=== PATIENT | male | born 1960 | race American Indian/Alaskan Native ===

== ENCOUNTER 2017-08-07 00:26 | Emergency (ER) | payer MEDICAID ==
[2017-08-07 00:45] VITALS: RESP 18; O2SAT 97
--- NOTE | 2017-08-07 02:28 | C.PDOC ---
History Of Present Illness The patient presents to the ED for evaluation of abdominal pain and one episode of vomiting which began today. Patient admits to heroin use earlier today. He denies fever, chills, diarrhea, and suicidal/homicidal ideation at this time. Time Seen by Provider: 08/07/17 02:28 Chief Complaint (Nursing): Medical Clearance History Per: Patient History/Exam Limitations: no limitations Onset/Duration Of Symptoms: Hrs Current Symptoms Are (Timing): Still Present Severity: Mild Pain Scale Rating Of: 2 Recent travel outside of the [place]: No Additional History Per: Patient Past Medical History Reviewed: Historical Data, Nursing Documentation, Vital Signs Vital Signs: Last Vital Signs Temp 98.7 F 08/07/17 00:38 Pulse 99 H 08/07/17 00:38 Resp 18 08/07/17 00:38 BP 123/83 08/07/17 00:38 Pulse Ox 97 08/07/17 02:38 - Medical History PMH: Hepatitis, Seizures (last use of dilantin 2 weeks ago) Denies: Diabetes, HIV, HTN, Sexually Transmitted Disease Surgical History: No Surg Hx - [facility]OX[facility] FOR SUBSTANCE ABUSE TREATMENT (07/17/15) Family History: States: Unknown Family Hx - Social History Hx Alcohol Use: Yes Hx Substance Use: Yes - Immunization History Hx Tetanus Toxoid Vaccination: Yes Hx Influenza Vaccination: Yes Hx Pneumococcal Vaccination: No Review Of Systems Constitutional: Negative for: Fever, Chills Cardiovascular: Negative for: Chest Pain, Palpitations Respiratory: Negative for: Cough, Shortness of Breath Gastrointestinal: Positive for: Nausea, Vomiting, Abdominal Pain. Negative for : Diarrhea Skin: Negative for: Rash, Lesions, Jaundice, Bruising Psych: Positive for: Other (heroin use ). Negative for: Suicidal ideation Physical Exam - Physical Exam Appears: Non-toxic, No Acute Distress Skin: Warm, Dry Head: Normacephalic Eye(s): bilateral: Normal Inspection Oral Mucosa: Moist Neck: Supple Chest: Symmetrical, No Deformity, No Tenderness Cardiovascular: Rhythm Regular, No Murmur Respiratory: No Rales, No Rhonchi, No Wheezing Gastrointestinal/Abdominal: Soft, No Tenderness, No Guarding, No Rebound Extremity: Normal ROM, Capillary Refill (less than 2 seconds ) Neurological/Psych: Oriented x3 Gait: Steady ED Course And Treatment O2 Sat by Pulse Oximetry: 97 (on RA ) Pulse Ox Interpretation: Normal Progress Note: Bloodwork ordered and reviewed. Disposition Counseled Patient/Family Regarding: Studies Performed, Diagnosis, Need For Followup - Disposition Referrals: [facility] [Outside] Disposition: HOME/ ROUTINE Disposition Time: 02:28 Condition: FAIR Instructions: Polysubstance Abuse (ED) Forms: [facility] (Maldivian), General Discharge Instructions - Clinical Impression Clinical Impression: Substance abuse - Scribe Statement The provider has reviewed the documentation as recorded by the Scribe (Shilpa Manriquez) Provider Attestation: All medical record entries made by the Scribe were at my direction and personally dictated by me. I have reviewed the chart and agree that the record accurately reflects my personal performance of the history, physical exam, medical decision making, and the department course for this patient. I have also personally directed, reviewed, and agree with the discharge instructions and disposition.
[2017-08-07 03:12] LABS: BARBITURATES, UR NEGATIVE (NEGATIVE); BENZODIAZEPINES, UR NEGATIVE (NEGATIVE); PHENCYCLIDINE, UR NEGATIVE (NEGATIVE)
[2017-08-07 03:17] LABS: OPIATES, UR POSITIVE (NEGATIVE)
[2017-08-07 06:29] VITALS: BP 119/79; PULSE 96; TEMP 98.5
== END 2017-08-07 06:34 | disposition home or self-care (01) ==
LOC: C.ER 00:26
DX: F11.10 Opioid abuse, uncomplicated (principal)